=== PATIENT | female | born 1975 | race Caucasian/White ===

== ENCOUNTER → 2016-08-18 | Outpatient (CLI) | payer OTHER ==
--- NOTE | 2016-09-26 12:44 | BMR ---
EXAMINATION TYPE: MR breast BILAT wo/w con DATE OF EXAM: 08/18/2016 COMPARISON: NONE HISTORY: Abnormal Mammogram and family history of breast cancer with breast pain per order. CONTRAST: Multiplanar, multisequence images of the breasts were acquired utilizing 11 mL intravenous Omniscan g adolinium contrast. TECHNIQUE: A series of fat and water weighted images in the long and short axis views of both breasts are obtained in conjunction with dynamic contrast MRI with subtraction technique. Three-dimensional and additional postprocessing imaging is created on independent workstation and reviewed during offi cial interpretation of this study. REFERENCE: Outside bilateral breast mammogram July 04, 2016 BI-RADS 0. Targeted left breast ultrasound July 04, 2016 BI-RADS 1. Diagnostic left breast mammogram July 14, 2016 BI-RADS 2. FINDINGS: Exam is noted suboptimal as there is significant motion and misregistration artifact presen t. There is heterogeneously dense fibroglandular tissue redemonstrated throughout both breasts. There is minimal symmetric background enhancement identified. No significant cystic change is present in e ither breast. No pathologic enhancement is identified bilaterally. No suspicious skin thickening is s een. Chest wall is intact. Benign subcentimeter lymph nodes are seen in the bilateral axilla. No susp icious axillary or intramammary adenopathy is identified. No suspicious areas outside either breast a re seen. IMPRESSION: No MRI evidence for invasive malignancy in either breast. BI-RADS 1 negative study. Recommendation: Return to routine follow-up, patient is due for bilateral breast mammogram June 2017 t o be back on annual schedule. Some advise continued annual MRI surveillance in high risk patients. Cl inical correlation advised.
== END | disposition home or self-care (01) ==
LOC: RADMRIMAIN 20:23
PROVIDERS: ATTEND Surgery
DX: N64.4 Mastodynia (principal); R92.8 Other abnormal and inconclusive findings on diagnostic imaging of breast; Z80.3 Family history of malignant neoplasm of breast
CPT/HCPCS: 77059; 0159T; A9579

== ENCOUNTER → 2016-10-09 | Outpatient (CLI) | payer OTHER ==
[2016-10-09 19:03] LABS: Basophils % (A) 0 %; CH 34.2; CHCM 32.3; Eosinophils # (A) 0.1 k/uL (0-0.7); Eosinophils % (A) 2 %; HCT 44.1 % (34.0-46.0); HGB 13.9 gm/dL (11.4-16.0); Luc # (Auto) 0.09; Luc % (Auto) 1; Lymphocytes # (A) 1.7 k/uL (1.0-4.8); Lymphocytes % (A) 25 %; MCH 33.5 pg (25.0-35.0); MCHC 31.6 g/dL (31.0-37.0); MCV 106.1 fL (80.0-100.0); Macrocytosis Moderate; Mean Platelet Volume 8.4; Monocytes # (A) 0.3 k/uL (0-1.0); Monocytes % (A) 4 %; Neutrophils # (A) 4.5 k/uL (1.3-7.7); Neutrophils % (A) 67 %; RBC 4.15 m/uL (3.80-5.40); RDW 13.4 % (11.5-15.5); WBC 6.6 k/uL (3.8-10.6); WBC (Perox) 6.81
[2016-10-09 19:08] LABS: ALT 56 U/L (9-52); AST 66 U/L (14-36); Alkaline Phosphatase 71 U/L (38-126); Anion Gap 10 mmol/L; Blood Urea Nitrogen 16 mg/dL (7-17); Calcium 9.6 mg/dL (8.4-10.2); Carbon Dioxide 25 mmol/L (22-30); Chloride 106 mmol/L (98-107); Cholesterol 242 mg/dL (<200); Glucose 93 mg/dL (74-99); HDL Cholesterol 45 mg/dL (40-60); Non-African American GFR(MDRD) >60 (>60 ml/min/1.73 sqM); Potassium 4.6 mmol/L (3.5-5.1); Sodium 141 mmol/L (137-145); Total Bilirubin 0.4 mg/dL (0.2-1.3); Total Protein 7.3 g/dL (6.3-8.2)
[2016-10-09 19:54] LABS: Vitamin B12 313 pg/mL (239-931)
[2016-10-10 11:16] LABS: Lyme IgG/IgM 0.1 Index; Lyme IgG/IgM Interp NEGATIVE (NEGATIVE)
== END | disposition home or self-care (01) ==
LOC: MMGSC 08:47
PROVIDERS: ATTEND Family Medicine
DX: R20.2 Paresthesia of skin (principal)
CPT/HCPCS: 36415; 80053; 80061; 82306; 82607; 84439; 84443; 85025; 86618

== ENCOUNTER → 2016-11-01 | Outpatient (CLI) | payer OTHER ==
[2016-11-01 19:05] LABS: ALT 35 U/L (9-52); AST 32 U/L (14-36); Alkaline Phosphatase 72 U/L (38-126); Anion Gap 9 mmol/L; Blood Urea Nitrogen 16 mg/dL (7-17); Calcium 9.5 mg/dL (8.4-10.2); Carbon Dioxide 28 mmol/L (22-30); Chloride 105 mmol/L (98-107); Glucose 81 mg/dL (74-99); Non-African American GFR(MDRD) >60 (>60 ml/min/1.73 sqM); Potassium 4.6 mmol/L (3.5-5.1); Sodium 142 mmol/L (137-145); Total Bilirubin 0.3 mg/dL (0.2-1.3); Total Protein 7.5 g/dL (6.3-8.2)
== END ==
LOC: MMGSC 12:05
PROVIDERS: ATTEND Family Medicine
DX: R79.89 Other specified abnormal findings of blood chemistry (principal)
CPT/HCPCS: 36415; 80053

== ENCOUNTER → 2017-04-11 | Outpatient (CLI) | payer OTHER | END | disposition home or self-care (01) | LOC: MMGSC 11:25 | PROVIDERS: ATTEND Family Medicine | DX: L02.234 Carbuncle of groin (principal) | CPT/HCPCS: 87070; 87205 ==

== ENCOUNTER → 2021-07-22 | Outpatient (CLI) | payer OTHER ==
--- NOTE | 2021-07-22 08:24 | MM ---
Reason for Exam: Clinical finding. Last mammogram was performed 2 year(s) and 0 month(s) ago. Patient History: Last menstrual period: 07/08/2021 Risk Values: Gilma 5 year model risk: 0.5%. NCI Lifetime model risk: 6.5%. Prior Study Comparison: 07/14/2016 Bilateral MG 3D diag mammo wo cad MICHELLE, [facility]. 07/31/2018 Bilateral MG 3D diag mammo w/cad MICHELLE - 2, [facility]. Tissue Density: The breast tissue is heterogeneously dense. This may lower the sensitivity of mammography. Findings: Analyzed By CAD. Mammogram There is a focal asymmetry within the 12:00 position left breast present previously. No suspicious spiculated or lobular masses clustered microcalcifications or architectural distortion or other secondary signs of severe radiographically apparent. 2 palpable areas are identified by markers on the left breast. One of these was identified in 2018 and a similar region. No discrete mammographic abnormality is present in these locations.. Technique: Method: Targeted. Findings: The upper outer quadrant of the left breast, the axilla of the left breast and the retroareolar of the left breast were scanned. No significant changes when compared with prior studies. No discrete solid or cystic area is evident. No discrete ultrasound abnormality to correspond to palpable abnormalities is identified. Overall Assessment: Benign, BI-RAD 2 Assessment: MG 3D diag mammo w/cad MICHELLE - Bilateral: Benign, BI-RAD 2. US breast limited LT - Left: Negative, BI-RAD 1. Management: Screening Mammogram of both breasts in 1 year. Diagnostic Breast MRI of both breasts. A clinical breast exam by your physician is recommended on an annual basis and results should be correlated with mammographic findings. Results were given to the patient verbally at the time of exam. Clinical management of the palpable areas. Consider performing breast MRI for additional evaluation if clinically indicated. Electronically signed and approved by: Lorenzo Zepeda D.O. Radiologis
== END | disposition home or self-care (01) ==
LOC: RADMAMWWP 07:14
PROVIDERS: ATTEND Family Medicine
DX: N63.20 Unspecified lump in the left breast, unspecified quadrant (principal)
CPT/HCPCS: 77062; 77066